=== PATIENT | female | born 1945 | race African-American/Black ===

== ENCOUNTER 2019-06-19 02:28 | Emergency (ER) | payer MEDICARE, MEDICAID ==
[~2019-06-19 02:28] MED LIST: ALPR0.25 PO; AMLO5TAB4 PO; ASPI-1393 PO; BISA-81 PO; CLON0.3T PO; LOSA100T32 PO; POTA10CA42 PO
== END 2019-06-19 05:05 | disposition left against medical advice (07) ==
LOC: ER 02:28
DX: Z53.21 Procedure and treatment not carried out due to patient leaving prior to being seen by health care provider (principal)

== ENCOUNTER 2019-07-12 18:10 | Emergency (ER) | payer MEDICARE, MEDICAID ==
[~2019-07-12] VITALS: Ht 165.1 cm; Wt 75.0 kg
[~2019-07-12 18:10] MED LIST changes: -ASPI-1393 PO; +ASPI-1497 PO
[2019-07-12] MEDS ORDERED: KETOROLAC 30MG/ML VIAL IV STA (20:19)
[2019-07-12] MEDS ORDERED: ONDANSETRON HCL 4MG/2ML INJ IV STA (20:19)
[2019-07-12] MEDS ORDERED: SODIUM CHLORIDE 0.9% 500 ML IV ONE (20:30)
[2019-07-12 21:50] LABS: BASOPHILS % 0.6 % (0.0-2.0); EOSINOPHILS % 2.3 % (0.0-5.0); HEMATOCRIT. 34.5 % (36.0-48.0); HEMOGLOBIN. 11.4 g/dL (12.0-16.0); LYMPHOCYTES % 24.9 % (20.0-50.0); MEAN CORPUSCULAR HEMOGLOBIN 28.8 pg (28.0-32.0); MEAN CORPUSCULAR VOLUME 87.1 fL (81.0-99.0); NEUTROPHILS % 64.2 % (40.0-76.0); PLATELET 170 x1000/uL (130-400); RED BLOOD CELL COUNT 3.96 mill/uL (4.2-5.4); RED CELL DISTRIBUTION WIDTH 13.9 % (11.6-14.6)
[2019-07-12 21:55] LABS: CHLORIDE 107 mEq/L (98-107)
[2019-07-12] MEDS ORDERED: CLONIDINE 0.2MG TABLET PO ONE (22:30)
[2019-07-12 22:40] LABS: CLARITY URINE CLOUDY (CLEAR); COLOR URINE YELLOW (YELLOW); KETONES URINE NEGATIVE (NEGATIVE); LEUKOCYTE ESTERASE URINE 3+ (NEGATIVE); NITRITE URINE NEGATIVE (NEGATIVE); OCCULT BLOOD URINE NEGATIVE (NEGATIVE); PH URINE 5.5 (4.5-8.0); PROTEIN URINE NEGATIVE (NEGATIVE); SPECIFIC GRAVITY URINE 1.009 (1.005-1.030); UROBILINOGEN URINE 0.2 E.U./dL (0.2-1.0)
[2019-07-12 23:30] VITALS: BP 164/74
== END 2019-07-12 23:34 | disposition home or self-care (01) ==
LOC: ER 18:10 → CANBEDREQ 07-13 00:32
DX: R07.89 Other chest pain (principal); R55 Syncope and collapse; N39.0 Urinary tract infection, site not specified; R05 Cough; R09.81 Nasal congestion; I10 Essential (primary) hypertension; Z86.73 Personal history of transient ischemic attack (TIA), and cerebral infarction without residual deficits
CPT/HCPCS: 36415; 71045; 80053; 81003; 83880; 84484; 85025; 87086; 87804; 93005; 96361; 96374; 99284; J1885; J7040; J2405

== ENCOUNTER 2019-07-13 12:31 | Inpatient (IN) | payer MEDICARE, MEDICAID ==
[2019-07-13] VITALS (38 sets, daily range): BP systolic 97–213; BP diastolic 54–119
[~2019-07-13] VITALS: Ht 152.4 cm; Wt 74.4 kg
[2019-07-13] MEDS ORDERED: CLONIDINE 0.1MG TABLET PO PRN (13:00)
[2019-07-13] MEDS: AMLODIPINE 10MG TABLET PO SCH (13:00)
[2019-07-13] MEDS ORDERED: ONDANSETRON HCL 4MG/2ML INJ IV PRN (13:00)
[2019-07-13] MEDS ORDERED: HYDRALAZINE 20MG/ML VIAL IV ONE (13:15)
[2019-07-13] MEDS ORDERED: LEVETIRACETAM 1000MG/100ML 100 ML IV ONE (13:15)
[2019-07-13 13:27] LABS: BASOPHILS % 0.5 % (0.0-2.0); CHLORIDE 107 mEq/L (98-107); EOSINOPHILS % 2.1 % (0.0-5.0); HEMATOCRIT. 38.4 % (36.0-48.0); HEMOGLOBIN. 12.8 g/dL (12.0-16.0); LYMPHOCYTES % 32.8 % (20.0-50.0); MEAN CORPUSCULAR HEMOGLOBIN 28.9 pg (28.0-32.0); MEAN CORPUSCULAR VOLUME 86.5 fL (81.0-99.0); MONOCYTES % 8.2 % (2.0-8.0); NEUTROPHILS % 56.4 % (40.0-76.0); PLATELET 187 x1000/uL (130-400); RED BLOOD CELL COUNT 4.43 mill/uL (4.2-5.4); RED CELL DISTRIBUTION WIDTH 13.6 % (11.6-14.6)
[2019-07-13 13:30] LABS: ETHANOL BLOOD < 10 mg/dL
[2019-07-13 13:33] LABS: LDL CHOLESTEROL 194 mg/dL (5-100)
[2019-07-13 13:46] LABS: PROTHROMBIN TIME 9.8 sec (9.6-11.0)
[2019-07-13] MEDS ORDERED: CLONIDINE 0.3MG TABLET PO SCH (14:00)
[2019-07-13] MEDS ORDERED: NITROGLYCERIN 50MG PREMIX 250 ML IV ONE ×2 (14:30→15:30)
[2019-07-13] MEDS ORDERED: LOSARTAN POTASSIUM 50 MG TABLET PO SCH (16:00)
[2019-07-13] MEDS ORDERED: IOHEXOL-350 100 ML BOTTLE ONE (16:56)
[2019-07-13 17:06] LABS: CLARITY URINE CLEAR (CLEAR); COLOR URINE YELLOW (YELLOW); KETONES URINE NEGATIVE (NEGATIVE); LEUKOCYTE ESTERASE URINE 1+ (NEGATIVE); NITRITE URINE NEGATIVE (NEGATIVE); OCCULT BLOOD URINE NEGATIVE (NEGATIVE); PROTEIN URINE NEGATIVE (NEGATIVE); SPECIFIC GRAVITY URINE 1.012 (1.005-1.030); UROBILINOGEN URINE 0.2 E.U./dL (0.2-1.0)
[2019-07-13 17:31] LABS: *AMPHETAMINES SCREEN URINE NEGATIVE (NEGATIVE); *BARBITURATES SCREEN URINE NEGATIVE (NEGATIVE); *BENZODIAZEPINES SCREEN URINE NEGATIVE (NEGATIVE); *COCAINE SCREEN URINE NEGATIVE (NEGATIVE); CANNABINOID URINE SCREEN NEGATIVE (NEGATIVE); METHADONE URINE SCREEN NEGATIVE (NEGATIVE); OPIATES URINE SCREEN NEGATIVE (NEGATIVE); PHENCYCLIDINE URINE SCREEN NEGATIVE (NEGATIVE)
[2019-07-13] MEDS ORDERED: NITROGLYCERIN 50MG PREMIX 250 ML IV PRN (20:45)
[2019-07-13] MEDS: ATORVASTATIN CALCIUM 10MG TABLET PO SCH (21:14)
[2019-07-13] MEDS: CLONIDINE 0.2MG TABLET PO SCH (21:15)
[2019-07-13] MEDS: ALPRAZOLAM 0.25 MG TABLET PO PRN (22:16)
[2019-07-14] VITALS (62 sets, daily range): BP systolic 86–162; BP diastolic 46–92
[2019-07-14] MEDS: CLONIDINE 0.2MG TABLET PO SCH ×3 (05:47→21:29)
[2019-07-14 06:29] LABS: BASOPHILS % 0.6 % (0.0-2.0); EOSINOPHILS % 2.5 % (0.0-5.0); HEMATOCRIT. 32.2 % (36.0-48.0); HEMOGLOBIN. 10.5 g/dL (12.0-16.0); LYMPHOCYTES % 30.7 % (20.0-50.0); MEAN CORPUSCULAR HEMOGLOBIN 28.4 pg (28.0-32.0); MEAN PLATELET VOLUME 8.3 fl (7.4-10.4); MONOCYTES % 9.9 % (2.0-8.0); NEUTROPHILS % 56.3 % (40.0-76.0); PLATELET 160 x1000/uL (130-400); RED CELL DISTRIBUTION WIDTH 13.6 % (11.6-14.6)
[2019-07-14] MEDS ORDERED: HYDRALAZINE 20MG/ML VIAL IV PRN (06:45)
[2019-07-14 07:24] LABS: CHLORIDE 108 mEq/L (98-107)
[2019-07-14 07:49] LABS: LDL CHOLESTEROL 149 mg/dL (5-100)
[2019-07-14 07:53] LABS: HDL CHOLESTEROL 46 mg/dL (40-59)
[2019-07-14] MEDS: LOSARTAN POTASSIUM 100 MG TABLET PO SCH (08:53)
[2019-07-14] MEDS: AMLODIPINE 10MG TABLET PO SCH (08:54)
[2019-07-14] MEDS: DOCUSATE SODIUM 100MG CAPSULE PO PRN (08:54)
[2019-07-14] MEDS: ACETAMINOPHEN 325MG TABLET PO PRN ×2 (08:54→17:50)
[2019-07-14] MEDS: ALPRAZOLAM 0.25 MG TABLET PO PRN ×2 (09:50→21:29)
[2019-07-14] MEDS ORDERED: DEXTROSE 50% WATER 50ML SYRINGE IV PRN (20:00)
[2019-07-14] MEDS: INSULIN LISPRO 100 UNITS/ML SUBCUT SCH (21:00)
[2019-07-14] MEDS: BLOOD SUGAR DIAGNOSTIC STRIP TEST SCH (21:28)
[2019-07-14] MEDS: ATORVASTATIN CALCIUM 10MG TABLET PO SCH (21:29)
[2019-07-15] VITALS (24 sets, daily range): BP systolic 111–164; BP diastolic 45–86
[2019-07-15 05:46] LABS: BASOPHILS % 0.6 % (0.0-2.0); EOSINOPHILS % 2.9 % (0.0-5.0); HEMATOCRIT. 34.8 % (36.0-48.0); HEMOGLOBIN. 11.5 g/dL (12.0-16.0); LYMPHOCYTES % 32.5 % (20.0-50.0); MEAN CORPUSCULAR HEMOGLOBIN 28.8 pg (28.0-32.0); MEAN CORPUSCULAR VOLUME 86.8 fL (81.0-99.0); MEAN PLATELET VOLUME 8.1 fl (7.4-10.4); MONOCYTES % 9.5 % (2.0-8.0); NEUTROPHILS % 54.5 % (40.0-76.0); PLATELET 174 x1000/uL (130-400); RED BLOOD CELL COUNT 4.01 mill/uL (4.2-5.4); RED CELL DISTRIBUTION WIDTH 13.4 % (11.6-14.6)
[2019-07-15] MEDS: CLONIDINE 0.2MG TABLET PO SCH ×3 (06:23→21:47)
[2019-07-15] MEDS: BLOOD SUGAR DIAGNOSTIC STRIP TEST SCH ×5 (06:47→21:00)
[2019-07-15] MEDS: INSULIN LISPRO 100 UNITS/ML SUBCUT SCH ×5 (06:47→21:00)
[2019-07-15] MEDS ORDERED: TRAMADOL 50MG TABLET PO PRN (08:00)
[2019-07-15] MEDS: LOSARTAN POTASSIUM 100 MG TABLET PO SCH (08:54)
[2019-07-15] MEDS: AMLODIPINE 10MG TABLET PO SCH (08:54)
[2019-07-15] MEDS: DOCUSATE SODIUM 100MG CAPSULE PO PRN (08:54)
[2019-07-15] MEDS: ALPRAZOLAM 0.25 MG TABLET PO PRN (17:18)
[2019-07-15] MEDS: LACTULOSE 20G/30ML UDC PO SCH ×2 (17:30→21:46)
[2019-07-15] MEDS: ATORVASTATIN CALCIUM 10MG TABLET PO SCH (21:00)
[2019-07-15] MEDS: LEVETIRACETAM 500MG TABLET PO SCH (21:00)
[2019-07-16] VITALS (10 sets, daily range): BP systolic 97–161; BP diastolic 35–77
[2019-07-16] MEDS: CLONIDINE 0.2MG TABLET PO SCH ×2 (05:17→13:20)
[2019-07-16] MEDS: BLOOD SUGAR DIAGNOSTIC STRIP TEST SCH ×2 (07:30→13:20)
[2019-07-16] MEDS: INSULIN LISPRO 100 UNITS/ML SUBCUT SCH ×2 (08:00→13:00)
[2019-07-16] MEDS: LACTULOSE 20G/30ML UDC PO SCH (08:34)
[2019-07-16] MEDS: AMLODIPINE 10MG TABLET PO SCH (08:44)
[2019-07-16] MEDS: LEVETIRACETAM 500MG TABLET PO SCH (08:45)
[2019-07-16] MEDS: LOSARTAN POTASSIUM 100 MG TABLET PO SCH (08:45)
[2019-07-16] MEDS ORDERED: LACTULOSE 20G/30ML UDC PO PRN (14:15)
== END 2019-07-16 16:01 | disposition home or self-care (01) | DRG 92 ==
LOC: ER 12:31 → MICUNO 13:04 → EDBEDREQ 14:01 → EDBEDREQSVC 14:01 → EDBEDREQTM 14:01 → ENRESERV 19:23 → 5EST 07-15 12:20
PROVIDERS: ADMIT Internal Medicine Nephrology; ATTEND Internal Medicine Nephrology
DX: G92 Toxic encephalopathy (principal); R47.01 Aphasia; I16.9 Hypertensive crisis, unspecified; D64.9 Anemia, unspecified; I49.5 Sick sinus syndrome; I10 Essential (primary) hypertension; E11.9 Type 2 diabetes mellitus without complications; R13.10 Dysphagia, unspecified; D72.819 Decreased white blood cell count, unspecified; E78.00 Pure hypercholesterolemia, unspecified; E78.5 Hyperlipidemia, unspecified; F17.210 Nicotine dependence, cigarettes, uncomplicated; F32.9 Major depressive disorder, single episode, unspecified; R47.1 Dysarthria and anarthria; F41.9 Anxiety disorder, unspecified; I25.10 Atherosclerotic heart disease of native coronary artery without angina pectoris; R26.9 Unspecified abnormalities of gait and mobility; J44.9 Chronic obstructive pulmonary disease, unspecified; Z79.899 Other long term (current) drug therapy; Z82.3 Family history of stroke; Z82.49 Family history of ischemic heart disease and other diseases of the circulatory system; Z83.3 Family history of diabetes mellitus; Z86.73 Personal history of transient ischemic attack (TIA), and cerebral infarction without residual deficits; Z95.0 Presence of cardiac pacemaker
CPT/HCPCS: 36415; 70496; 71045; 80048; 80053; 80061; 80305; 80320; 81003; 82962; 83721; 83735; 84484; 85025; 92610; 93005; 93306; 96365; 96375; 97116; 97162; 97166; 97530; 97535; 99291; J0360; J1953; J3490; Q9967; G0480

== ENCOUNTER 2021-06-08 01:09 | Inpatient (IN) | payer MEDICARE, MEDICAID ==
[~2021-06-08] VITALS: Ht 165.1 cm; Wt 66.7 kg
[~2021-06-08 01:09] MED LIST changes: -ALPR0.25 PO; +AMLO10TA80 PO; -AMLO5TAB4 PO; -ASPI-1497 PO; -BISA-81 PO; +CHOL200077 MT; +CLON0.2T PO; -CLON0.3T PO; +HYDR-4134 PO; -POTA10CA42 PO
[2021-06-08] MEDS ORDERED: NITROGLYCERIN 0.4MG TABLET SL SL PRN (02:15)
[2021-06-08] MEDS ORDERED: LABETALOL HCL VIAL 20 MG/4 ML VIAL IV ONE (02:15)
[2021-06-08] MEDS ORDERED: ASPIRIN 81MG TABLET PO ONE (02:15)
[2021-06-08 04:06] LABS: CHLORIDE 98 mEq/L (98-107)
[2021-06-08 04:08] LABS: BASOPHILS % 0.9 % (0.0-2.0); EOSINOPHILS % 1.9 % (0.0-5.0); HEMATOCRIT. 36.4 % (36.0-48.0); HEMOGLOBIN. 12.2 g/dL (12.0-16.0); LYMPHOCYTES % 28.2 % (20.0-50.0); MEAN CORPUSCULAR VOLUME 89.6 fL (81.0-99.0); MEAN PLATELET VOLUME 7.6 fl (7.4-10.4); MONOCYTES % 9.9 % (2.0-8.0); NEUTROPHILS % 59.1 % (40.0-76.0); PLATELET 191 x1000/uL (130-400); RED BLOOD CELL COUNT 4.06 mill/uL (4.2-5.4); RED CELL DISTRIBUTION WIDTH 13.6 % (11.6-14.6)
[2021-06-08] MEDS ORDERED: CLONIDINE 0.1MG TABLET PO PRN (06:30)
[2021-06-08] MEDS ORDERED: GUAIFENESIN 200MG/10ML SUGAR FREE UDC PO PRN (06:30)
[2021-06-08] MEDS ORDERED: NA PHOS,M-B/NA PHOS,DI-BA ENEMA 118ML PR PRN (06:30)
[2021-06-08] MEDS ORDERED: DIPHENHYDRAMINE 50MG/ML VIAL IV PRN (06:30)
[2021-06-08 06:42] LABS: PHOSPHORUS 3.2 mg/dL (2.5-4.9)
[2021-06-08] MEDS: HYDRALAZINE HCL 50MG TABLET PO SCH ×3 (07:10→21:39)
[2021-06-08] MEDS ORDERED: LOSARTAN POTASSIUM 25 MG TABLET PO SCH (09:00)
[2021-06-08] MEDS ORDERED: DOCUSATE SODIUM 100MG CAPSULE PO PRN (09:00)
[2021-06-08] MEDS ORDERED: AMLO5TAB88 MT (09:44)
[2021-06-08] MEDS ORDERED: LOSA50TA41 MT (09:44)
[2021-06-08] MEDS ORDERED: CLON-457 MT (09:44)
[2021-06-08] MEDS ORDERED: CHOL400D7 PO (09:44)
[2021-06-08] MEDS ORDERED: TOPUD MT (09:44)
[2021-06-08 10:16] VITALS: BP 112/55
[2021-06-08 10:41] VITALS: BP 112/55
[2021-06-08] MEDS ORDERED: PNEUMOCOCCAL 23-VAL P-SAC VAC 0.5 ML IM ONE (10:45)
[2021-06-08] MEDS: ENOXAPARIN 40MG/0.4ML SYR SUBCUT SCH (11:22)
[2021-06-08] MEDS: AMLODIPINE 5MG TABLET PO SCH (11:22)
[2021-06-08] MEDS: LOSARTAN POTASSIUM 50 MG TABLET PO SCH (11:22)
[2021-06-08] MEDS: ACETAMINOPHEN 325MG TABLET PO PRN (11:25)
[2021-06-08] MEDS ORDERED: POTA20TA82 MT (11:32)
[2021-06-08 12:00] VITALS: BP 109/67
[2021-06-08] MEDS: TRAMADOL 50MG TABLET PO PRN ×2 (15:24→23:26)
[2021-06-08] MEDS ORDERED: NALOXONE HCL 0.4MG/ML VIAL IV PRN (15:30)
[2021-06-08 16:00] VITALS: BP 148/64
[2021-06-08 20:00] VITALS: BP 117/69
[2021-06-08] MEDS ORDERED: DOXAZOSIN MESYLATE 2MG TABLET PO SCH (21:00)
[2021-06-08] MEDS: ALPRAZOLAM 0.25 MG TABLET PO PRN (22:56)
[2021-06-09] VITALS (7 sets, daily range): BP systolic 121–188; BP diastolic 50–87
[2021-06-09] MEDS: HYDRALAZINE HCL 50MG TABLET PO SCH ×3 (05:55→21:33)
[2021-06-09] MEDS: TRAMADOL 50MG TABLET PO PRN ×2 (05:56→23:50)
[2021-06-09 07:04] LABS: BASOPHILS % 0.5 % (0.0-2.0); EOSINOPHILS % 1.1 % (0.0-5.0); HEMOGLOBIN. 11.4 g/dL (12.0-16.0); LYMPHOCYTES % 18.9 % (20.0-50.0); MEAN CORPUSCULAR HEMOGLOBIN 30.2 pg (28.0-32.0); MEAN PLATELET VOLUME 7.6 fl (7.4-10.4); MONOCYTES % 9.5 % (2.0-8.0); PLATELET 187 x1000/uL (130-400); RED BLOOD CELL COUNT 3.78 mill/uL (4.2-5.4); RED CELL DISTRIBUTION WIDTH 13.7 % (11.6-14.6)
[2021-06-09 07:30] LABS: CHLORIDE 103 mEq/L (98-107)
[2021-06-09 07:38] LABS: CREATINE KINASE 54 IU/L (26-192)
[2021-06-09 07:40] LABS: PHOSPHORUS 3.5 mg/dL (2.5-4.9)
[2021-06-09 07:52] LABS: CREATINE KINASE MB FRACTION 1.4 ng/mL (0.5-3.6)
[2021-06-09] MEDS: AMLODIPINE 5MG TABLET PO SCH (09:23)
[2021-06-09] MEDS: LOSARTAN POTASSIUM 50 MG TABLET PO SCH (09:23)
[2021-06-09] MEDS: ENOXAPARIN 40MG/0.4ML SYR SUBCUT SCH (09:24)
[2021-06-09] MEDS: ACETAMINOPHEN 325MG TABLET PO PRN (09:26)
[2021-06-09] MEDS ORDERED: BISACODYL 5MG TABLET PO NR (12:00)
[2021-06-09] MEDS ORDERED: ACETAMINOPHEN 325MG TABLET PO PRN (12:30)
[2021-06-09] MEDS: POLYETHYLENE GLYCOL 3350 (17GM) 1 DOSE PACK PO SCH (13:07)
[2021-06-09] MEDS: DOCUSATE SODIUM 100MG CAPSULE PO SCH ×2 (13:08→16:17)
[2021-06-09] MEDS: ALPRAZOLAM 0.25 MG TABLET PO PRN (21:32)
[2021-06-10] VITALS: BP 139/55
[2021-06-10] MEDS: HYDRALAZINE HCL 50MG TABLET PO SCH (06:03)
[2021-06-10 06:42] LABS: PROTHROMBIN TIME 10.6 sec (9.6-11.0)
[2021-06-10 06:55] LABS: BASOPHILS % 0.6 % (0.0-2.0); EOSINOPHILS % 0.8 % (0.0-5.0); HEMATOCRIT. 34.6 % (36.0-48.0); HEMOGLOBIN. 11.5 g/dL (12.0-16.0); LYMPHOCYTES % 20.5 % (20.0-50.0); MEAN CORPUSCULAR HEMOGLOBIN 30.1 pg (28.0-32.0); MEAN CORPUSCULAR VOLUME 90.4 fL (81.0-99.0); MEAN PLATELET VOLUME 7.8 fl (7.4-10.4); MONOCYTES % 10.3 % (2.0-8.0); NEUTROPHILS % 67.8 % (40.0-76.0); PLATELET 188 x1000/uL (130-400); RED BLOOD CELL COUNT 3.83 mill/uL (4.2-5.4); RED CELL DISTRIBUTION WIDTH 13.8 % (11.6-14.6)
[2021-06-10 08:00] VITALS: BP 137/62
[2021-06-10] MEDS: ENOXAPARIN 40MG/0.4ML SYR SUBCUT SCH (09:23)
[2021-06-10] MEDS: POLYETHYLENE GLYCOL 3350 (17GM) 1 DOSE PACK PO SCH (09:24)
[2021-06-10] MEDS: AMLODIPINE 5MG TABLET PO SCH (09:24)
[2021-06-10] MEDS: DOCUSATE SODIUM 100MG CAPSULE PO SCH ×2 (09:24→17:28)
[2021-06-10] MEDS: LOSARTAN POTASSIUM 50 MG TABLET PO SCH (09:25)
[2021-06-10] MEDS: ONDANSETRON HCL 4MG/2ML INJ IV PRN ×2 (09:25→21:42)
[2021-06-10 12:00] VITALS: BP 135/55
[2021-06-10] MEDS: HYDRALAZINE HCL 25MG TABLET PO SCH ×2 (14:45→21:53)
[2021-06-10] MEDS: TRAMADOL 50MG TABLET PO PRN (14:48)
[2021-06-10 16:00] VITALS: BP 123/56
[2021-06-10 20:00] VITALS: BP 165/70
[2021-06-10] MEDS: ALPRAZOLAM 0.25 MG TABLET PO PRN (22:10)
[2021-06-11] VITALS: BP 125/57
[2021-06-11 04:00] VITALS: BP 127/50
[2021-06-11] MEDS: HYDRALAZINE HCL 25MG TABLET PO SCH (06:22)
[2021-06-11 07:16] LABS: BASOPHILS % 0.7 % (0.0-2.0); EOSINOPHILS % 0.9 % (0.0-5.0); HEMATOCRIT. 35.5 % (36.0-48.0); HEMOGLOBIN. 11.9 g/dL (12.0-16.0); LYMPHOCYTES % 24.5 % (20.0-50.0); MEAN CORPUSCULAR HEMOGLOBIN 30.3 pg (28.0-32.0); MEAN CORPUSCULAR VOLUME 90.1 fL (81.0-99.0); MEAN PLATELET VOLUME 7.4 fl (7.4-10.4); MONOCYTES % 13.4 % (2.0-8.0); NEUTROPHILS % 60.5 % (40.0-76.0); PLATELET 201 x1000/uL (130-400); RED BLOOD CELL COUNT 3.95 mill/uL (4.2-5.4); RED CELL DISTRIBUTION WIDTH 13.6 % (11.6-14.6)
[2021-06-11 08:00] VITALS: BP 144/60
[2021-06-11] MEDS: POLYETHYLENE GLYCOL 3350 (17GM) 1 DOSE PACK PO SCH (08:43)
[2021-06-11] MEDS: DOCUSATE SODIUM 100MG CAPSULE PO SCH (08:43)
[2021-06-11] MEDS: LOSARTAN POTASSIUM 50 MG TABLET PO SCH (08:43)
[2021-06-11] MEDS: AMLODIPINE 5MG TABLET PO SCH (08:44)
[2021-06-11] MEDS: ENOXAPARIN 40MG/0.4ML SYR SUBCUT SCH (08:45)
[2021-06-11] MEDS: TRAMADOL 50MG TABLET PO PRN (08:54)
[2021-06-11] MEDS ORDERED: NA PHOS,M-B/NA PHOS,DI-BA ENEMA 118ML PR NR (09:30)
[2021-06-11] MEDS ORDERED: LACTULOSE 20G/30ML UDC PO NR (09:30)
[2021-06-11 10:13] VITALS: BP 144/60
[2021-06-11 12:00] VITALS: BP 145/71
== END 2021-06-11 14:29 | disposition home or self-care (01) | DRG 305 ==
LOC: ER 01:09 → 7EST 02:36
PROVIDERS: ADMIT Internal Medicine Nephrology; ATTEND Internal Medicine Nephrology
DX: I16.1 Hypertensive emergency (principal); E87.1 Hypo-osmolality and hyponatremia; D72.819 Decreased white blood cell count, unspecified; E11.22 Type 2 diabetes mellitus with diabetic chronic kidney disease; E78.5 Hyperlipidemia, unspecified; E83.52 Hypercalcemia; F41.9 Anxiety disorder, unspecified; G40.909 Epilepsy, unspecified, not intractable, without status epilepticus; I25.10 Atherosclerotic heart disease of native coronary artery without angina pectoris; R07.89 Other chest pain; M25.512 Pain in left shoulder; J44.9 Chronic obstructive pulmonary disease, unspecified; F32.A Depression, unspecified; M19.90 Unspecified osteoarthritis, unspecified site; I13.10 Hypertensive heart and chronic kidney disease without heart failure, with stage 1 through stage 4 chronic kidney disease, or unspecified chronic kidney disease; R50.9 Fever, unspecified; I49.5 Sick sinus syndrome; Z20.822 Contact with and (suspected) exposure to COVID-19; K59.00 Constipation, unspecified; N18.9 Chronic kidney disease, unspecified; Z79.899 Other long term (current) drug therapy; Z87.891 Personal history of nicotine dependence; I69.320 Aphasia following cerebral infarction; I69.322 Dysarthria following cerebral infarction; Z95.0 Presence of cardiac pacemaker
CPT/HCPCS: 36415; 71045; 73030; 80048; 80053; 82247; 82330; 82550; 82553; 83735; 83880; 83930; 83970; 84100; 84484; 85025; 87426; 90732; 93005; 93306; 93970; 99291; J1650; J2405; J3490

== ENCOUNTER 2022-06-10 06:17 | Inpatient (IN) | payer MEDICARE, MEDICAID ==
[~2022-06-10] VITALS: Ht 165.1 cm; Wt 64.9 kg
[~2022-06-10 06:17] MED LIST changes: +AMLO5TAB88 MT; +CHOL400D7 PO; +CLON-457 MT; +LOSA50TA41 MT; +POTA-205 MT; +TOPUD MT
[2022-06-10] MEDS ORDERED: LIDOCAINE HCL 1% 20ML VIAL (Pyxis) INJ ONE (07:37)
[2022-06-10 08:33] LABS: BASOPHILS % 1.3 % (0.0-2.0); EOSINOPHILS % 3.2 % (0.0-5.0); HEMATOCRIT. 37.7 % (36.0-48.0); HEMOGLOBIN. 12.5 g/dL (12.0-16.0); LYMPHOCYTES % 29.8 % (20.0-50.0); MEAN CORPUSCULAR HEMOGLOBIN 29.4 pg (28.0-32.0); MEAN CORPUSCULAR VOLUME 88.2 fL (81.0-99.0); MEAN PLATELET VOLUME 7.4 fl (7.4-10.4); MONOCYTES % 8.2 % (2.0-8.0); NEUTROPHILS % 57.5 % (40.0-76.0); PLATELET 211 x1000/uL (130-400); RED BLOOD CELL COUNT 4.27 mill/uL (4.2-5.4); RED CELL DISTRIBUTION WIDTH 14.6 % (11.6-14.6)
[2022-06-10] MEDS ORDERED: ALPR-392 PO (08:38)
[2022-06-10] MEDS ORDERED: ALBU90AE IH (08:38)
[2022-06-10] MEDS ORDERED: CLOP75TA33 PO (08:38)
[2022-06-10] MEDS ORDERED: ASPI-1497 PO (08:40)
[2022-06-10] MEDS ORDERED: IODIXANOL 320MG/ML 100 ML BOTTLE IV ONE (09:24)
[2022-06-10] MEDS ORDERED: LABETALOL 5MG/ML SYR 20 MG/4 ML SYRINGE IV PRN (09:30)
[2022-06-10] MEDS ORDERED: MEPERIDINE HCL/PF 25MG/ML CPJ IV PRN (09:30)
[2022-06-10] MEDS ORDERED: HYDROMORPHONE HCL/PF 2MG/ML CPJ IV PRN (09:30)
[2022-06-10] MEDS ORDERED: ONDANSETRON HCL 4MG/2ML INJ IV PRN (09:30)
[2022-06-10] MEDS ORDERED: LIDOCAINE HCL 1% 10 MG/ML 10ML VIAL ONE (09:31)
[2022-06-10] MEDS ORDERED: PROPOFOL 200MG/20ML VIAL IV ONE (09:31)
[2022-06-10] MEDS ORDERED: MIDAZOLAM HCL 2 MG/2 ML VIAL ONE ×2 (09:32)
[2022-06-10] MEDS ORDERED: FENTANYL CITRATE/PF 50MCG/ML 2ML VIAL ONE ×2 (09:32→11:09)
[2022-06-10 09:57] LABS: CHLORIDE 101 mEq/L (98-107)
[2022-06-10 10:01] LABS: PROTHROMBIN TIME 10.6 sec (9.6-11.0)
[2022-06-10] MEDS ORDERED: GENTAMICIN SULF 40MG/ML 2ML VIAL ONE (11:34)
[2022-06-10] MEDS: FENTANYL CITRATE/PF 50MCG/ML 2ML VIAL IV PRN ×2 (12:41→13:24)
[2022-06-10] MEDS ORDERED: NALOXONE HCL 0.4MG/ML VIAL IV PRN (13:30)
[2022-06-10] MEDS: POTASSIUM CHLORIDE 20MEQ TABLET SR PO SCH (13:30)
[2022-06-10] MEDS: CLONIDINE 0.2MG TABLET PO SCH ×2 (14:13→17:44)
[2022-06-10 16:01] VITALS: BP 129/69
[2022-06-10 16:05] VITALS: BP 129/69
[2022-06-10] MEDS: HYDRALAZINE HCL 25MG TABLET PO SCH (17:44)
[2022-06-10] MEDS: HYDROCODONE/ACETAMINOPHEN 5/325MG TABLET PO PRN (17:44)
[2022-06-10 18:00] VITALS: BP 115/56
[2022-06-10] MEDS ORDERED: ALPRAZOLAM 0.25 MG TABLET PO PRN (19:45)
[2022-06-10 20:00] VITALS: BP 155/70
[2022-06-11] VITALS: BP 117/61
[2022-06-11 04:00] VITALS: BP 112/63
[2022-06-11] MEDS: HYDROCODONE/ACETAMINOPHEN 5/325MG TABLET PO PRN (05:10)
[2022-06-11 06:57] LABS: BASOPHILS % 0.9 % (0.0-2.0); EOSINOPHILS % 2.1 % (0.0-5.0); HEMATOCRIT. 33.2 % (36.0-48.0); HEMOGLOBIN. 11.4 g/dL (12.0-16.0); LYMPHOCYTES % 21.4 % (20.0-50.0); MEAN CORPUSCULAR HEMOGLOBIN 30.1 pg (28.0-32.0); MEAN CORPUSCULAR VOLUME 88.1 fL (81.0-99.0); MEAN PLATELET VOLUME 7.6 fl (7.4-10.4); MONOCYTES % 9.8 % (2.0-8.0); NEUTROPHILS % 65.8 % (40.0-76.0); PLATELET 194 x1000/uL (130-400); RED BLOOD CELL COUNT 3.77 mill/uL (4.2-5.4)
[2022-06-11 08:00] VITALS: BP 129/64
[2022-06-11] MEDS: POTASSIUM CHLORIDE 20MEQ TABLET SR PO SCH (08:27)
[2022-06-11 08:28] LABS: CHLORIDE 102 mEq/L (98-107)
[2022-06-11] MEDS: HYDRALAZINE HCL 25MG TABLET PO SCH (09:00)
[2022-06-11] MEDS ORDERED: AMLODIPINE 10MG TABLET PO SCH (09:00)
[2022-06-11] MEDS ORDERED: ASPIRIN 81MG EC TABLET PO SCH (09:00)
[2022-06-11] MEDS ORDERED: CLOPIDOGREL 75MG TABLET PO SCH (09:00)
[2022-06-11] MEDS ORDERED: LOSARTAN POTASSIUM 50 MG TABLET PO SCH (09:00)
[2022-06-11 10:00] VITALS: BP 117/61
[2022-06-11] MEDS: CLONIDINE 0.2MG TABLET PO SCH ×2 (11:22→13:00)
[2022-06-11 12:00] VITALS: BP 129/61
[2022-06-11 15:00] VITALS: BP 101/60
== END 2022-06-11 15:50 | disposition home or self-care (01) | DRG 244 ==
LOC: CCL 06:17 → CVICU 15:20 → 3WST 15:43
PROVIDERS: ADMIT Internal Medicine Clinical Cardiac Electrophysiology; ATTEND Internal Medicine Clinical Cardiac Electrophysiology
PROC: 02H63JZ Insertion of Pacemaker Lead into Right Atrium, Percutaneous Approach (ICD-10-PCS; principal; 2022-06-10)
PROC: 0JH606Z Insertion of Pacemaker, Dual Chamber into Chest Subcutaneous Tissue and Fascia, Open Approach (ICD-10-PCS; 2022-06-10)
PROC: 0JPT0PZ Removal of Cardiac Rhythm Related Device from Trunk Subcutaneous Tissue and Fascia, Open Approach (ICD-10-PCS; 2022-06-10)
PROC: 02PA3MZ Removal of Cardiac Lead from Heart, Percutaneous Approach (ICD-10-PCS; 2022-06-10)
PROC: B5171ZZ Fluoroscopy of Left Subclavian Vein using Low Osmolar Contrast (ICD-10-PCS; 2022-06-10)
DX: T82.110A Breakdown (mechanical) of cardiac electrode, initial encounter (principal); I49.5 Sick sinus syndrome; E11.9 Type 2 diabetes mellitus without complications; E78.5 Hyperlipidemia, unspecified; E87.6 Hypokalemia; J44.9 Chronic obstructive pulmonary disease, unspecified; I10 Essential (primary) hypertension; I25.10 Atherosclerotic heart disease of native coronary artery without angina pectoris; Z86.73 Personal history of transient ischemic attack (TIA), and cerebral infarction without residual deficits; Z95.0 Presence of cardiac pacemaker; Z95.5 Presence of coronary angioplasty implant and graft; Z79.84 Long term (current) use of oral hypoglycemic drugs; Z87.891 Personal history of nicotine dependence; Z88.6 Allergy status to analgesic agent; Z88.8 Allergy status to other drugs, medicaments and biological substances; Y83.8 Other surgical procedures as the cause of abnormal reaction of the patient, or of later complication, without mention of misadventure at the time of the procedure; Y92.89 Other specified places as the place of occurrence of the external cause
CPT/HCPCS: 33206; 33233; 36415; 71045; 75820; 80048; 85025; 93005; A4565; C1785; C1893; C1898; J1580; J2250; J2704; J3010; J3490; Q9967

== ENCOUNTER 2022-08-31 05:24 | Inpatient (IN) | payer MEDICARE, MEDICAID ==
[~2022-08-31] VITALS: Ht 175.3 cm; Wt 82.6 kg
[~2022-08-31 05:24] MED LIST changes: +ALBU90AE IH; +ALPR-392 PO; +ASPI-1497 PO; +CLOP75TA33 PO
[2022-08-31 06:04] LABS: BASOPHILS % 0.8 % (0.0-2.0); EOSINOPHILS % 3.5 % (0.0-5.0); HEMATOCRIT. 36.8 % (36.0-48.0); HEMOGLOBIN. 12.2 g/dL (12.0-16.0); LYMPHOCYTES % 44.8 % (20.0-50.0); MEAN CORPUSCULAR HEMOGLOBIN 29.6 pg (28.0-32.0); MEAN CORPUSCULAR VOLUME 89.2 fL (81.0-99.0); MEAN PLATELET VOLUME 7.9 fl (7.4-10.4); MONOCYTES % 10.5 % (2.0-8.0); NEUTROPHILS % 40.4 % (40.0-76.0); PLATELET 192 x1000/uL (130-400); RED BLOOD CELL COUNT 4.12 mill/uL (4.2-5.4); RED CELL DISTRIBUTION WIDTH 13.6 % (11.6-14.6)
[2022-08-31 06:16] LABS: CHLORIDE 106 mEq/L (98-107)
[2022-08-31 06:29] LABS: ETHANOL BLOOD < 10 mg/dL
[2022-08-31] MEDS ORDERED: CLONIDINE 0.1MG TABLET PO ONE (07:30)
[2022-08-31] MEDS ORDERED: ALPRAZOLAM 0.25 MG TABLET PO ONE (07:30)
[2022-08-31] MEDS ORDERED: HYDROCHLOROTHIAZIDE 12.5MG CAPSULE PO ONE (07:30)
[2022-08-31 10:21] LABS: *AMPHETAMINES SCREEN URINE NEGATIVE (NEGATIVE); *BARBITURATES SCREEN URINE NEGATIVE (NEGATIVE); *BENZODIAZEPINES SCREEN URINE NEGATIVE (NEGATIVE); *COCAINE SCREEN URINE NEGATIVE (NEGATIVE); CANNABINOID URINE SCREEN NEGATIVE (NEGATIVE); METHADONE URINE SCREEN NEGATIVE (NEGATIVE); OPIATES URINE SCREEN NEGATIVE (NEGATIVE); PHENCYCLIDINE URINE SCREEN NEGATIVE (NEGATIVE)
[2022-08-31] MEDS ORDERED: ACETAMINOPHEN 325MG TABLET PO PRN (11:30)
[2022-08-31] MEDS ORDERED: ONDANSETRON HCL 4MG/2ML INJ IV PRN (11:30)
[2022-08-31] MEDS ORDERED: NALOXONE HCL 0.4MG/ML VIAL IV PRN (11:45)
[2022-08-31 14:56] VITALS: BP 130/74
[2022-08-31 14:59] VITALS: BP 130/74
[2022-08-31] MEDS: CLONIDINE 0.2MG TABLET PO SCH ×2 (16:47→22:00)
[2022-08-31] MEDS: ENOXAPARIN 40MG/0.4ML SYR SUBCUT SCH (16:48)
[2022-08-31] MEDS: HYDROCODONE/ACETAMINOPHEN 7.5/325MG TABLET PO PRN (16:48)
[2022-08-31 20:06] VITALS: BP 119/65
[2022-08-31] MEDS: HYDRALAZINE HCL 25MG TABLET PO SCH (21:00)
[2022-08-31] MEDS: ALPRAZOLAM 0.25 MG TABLET PO PRN (21:06)
[2022-09-01 04:00] VITALS: BP 126/64
[2022-09-01 05:50] LABS: BASOPHILS % 1.2 % (0.0-2.0); EOSINOPHILS % 4.2 % (0.0-5.0); HEMATOCRIT. 33.6 % (36.0-48.0); HEMOGLOBIN. 11.2 g/dL (12.0-16.0); LYMPHOCYTES % 30.3 % (20.0-50.0); MEAN CORPUSCULAR HEMOGLOBIN 29.7 pg (28.0-32.0); MEAN PLATELET VOLUME 7.9 fl (7.4-10.4); NEUTROPHILS % 52.3 % (40.0-76.0); PLATELET 173 x1000/uL (130-400); RED BLOOD CELL COUNT 3.78 mill/uL (4.2-5.4); RED CELL DISTRIBUTION WIDTH 13.8 % (11.6-14.6)
[2022-09-01] MEDS: HYDROCODONE/ACETAMINOPHEN 7.5/325MG TABLET PO PRN ×2 (05:52→18:11)
[2022-09-01] MEDS: CLONIDINE 0.2MG TABLET PO SCH ×3 (06:29→21:31)
[2022-09-01 08:14] VITALS: BP 117/58
[2022-09-01 08:30] LABS: CLARITY URINE CLEAR (CLEAR); COLOR URINE YELLOW (YELLOW); KETONES URINE NEGATIVE (NEGATIVE); LEUKOCYTE ESTERASE URINE 1+ (NEGATIVE); NITRITE URINE NEGATIVE (NEGATIVE); OCCULT BLOOD URINE NEGATIVE (NEGATIVE); PH URINE 6.5 (4.5-8.0); PROTEIN URINE NEGATIVE (NEGATIVE); SPECIFIC GRAVITY URINE 1.012 (1.005-1.030); UROBILINOGEN URINE 0.2 E.U./dL (0.2-1.0)
[2022-09-01] MEDS: CLOPIDOGREL 75MG TABLET PO SCH (09:03)
[2022-09-01] MEDS: HYDRALAZINE HCL 25MG TABLET PO SCH ×2 (09:03→21:31)
[2022-09-01] MEDS: ASPIRIN 81MG EC TABLET PO SCH (09:03)
[2022-09-01] MEDS: AMLODIPINE 10MG TABLET PO SCH (09:03)
[2022-09-01] MEDS ORDERED: CEFTRIAXONE 1 G PREMIX 50 ML IV SCH (09:15)
[2022-09-01 12:00] VITALS: BP 114/57
[2022-09-01] MEDS: ALPRAZOLAM 0.25 MG TABLET PO PRN (12:19)
[2022-09-01] MEDS: CEFTRIAXONE 1,000 MG in DEXTROSE 5% WATER 50 ML IV SCH (13:22)
[2022-09-01 16:00] VITALS: BP 136/74
[2022-09-01] MEDS: ENOXAPARIN 40MG/0.4ML SYR SUBCUT SCH (16:37)
[2022-09-01 20:00] VITALS: BP 154/81
[2022-09-01] MEDS: LEVETIRACETAM 500MG TABLET PO SCH (21:30)
[2022-09-02] VITALS: BP 109/59
[2022-09-02 04:00] VITALS: BP 153/83
[2022-09-02] MEDS: CLONIDINE 0.2MG TABLET PO SCH (05:29)
[2022-09-02] MEDS: ALPRAZOLAM 0.25 MG TABLET PO PRN ×2 (05:29→17:50)
[2022-09-02 06:48] LABS: BASOPHILS % 0.8 % (0.0-2.0); HEMOGLOBIN. 11.3 g/dL (12.0-16.0); LYMPHOCYTES % 26.3 % (20.0-50.0); MEAN CORPUSCULAR HEMOGLOBIN 29.6 pg (28.0-32.0); MEAN CORPUSCULAR VOLUME 89.3 fL (81.0-99.0); MEAN PLATELET VOLUME 7.9 fl (7.4-10.4); MONOCYTES % 11.5 % (2.0-8.0); NEUTROPHILS % 57.4 % (40.0-76.0); PLATELET 183 x1000/uL (130-400); RED BLOOD CELL COUNT 3.81 mill/uL (4.2-5.4); RED CELL DISTRIBUTION WIDTH 13.2 % (11.6-14.6)
[2022-09-02 08:00] VITALS: BP 95/52
[2022-09-02 08:59] LABS: PHOSPHORUS 3.8 mg/dL (2.5-4.9)
[2022-09-02] MEDS: AMLODIPINE 10MG TABLET PO SCH (09:00)
[2022-09-02] MEDS: CLOPIDOGREL 75MG TABLET PO SCH (09:15)
[2022-09-02] MEDS: LEVETIRACETAM 500MG TABLET PO SCH (09:15)
[2022-09-02] MEDS: ASPIRIN 81MG EC TABLET PO SCH (09:15)
[2022-09-02 12:00] VITALS: BP_SYST 110; BP_SYST 125; BP_DIAS 57; BP_DIAS 65
[2022-09-02] MEDS: CEFTRIAXONE 1,000 MG in DEXTROSE 5% WATER 50 ML IV SCH (12:54)
[2022-09-02] MEDS: HYDRALAZINE HCL 25MG TABLET PO SCH (13:07)
[2022-09-02 16:00] VITALS: BP 121/70
[2022-09-02] MEDS: ENOXAPARIN 40MG/0.4ML SYR SUBCUT SCH (16:20)
[2022-09-02] MEDS: HYDROCODONE/ACETAMINOPHEN 7.5/325MG TABLET PO PRN (16:20)
[2022-09-02] MEDS ORDERED: CLONIDINE 0.1MG TABLET PO SCH (17:00)
[2022-09-02 18:12] VITALS: BP 125/80
[2022-09-02] MEDS ORDERED: AMLODIPINE 2.5MG TABLET PO SCH (21:00)
== END 2022-09-02 19:05 | disposition home or self-care (01) | DRG 69 ==
LOC: ER 05:24 → EDBEDREQ 11:26 → 3WST 15:07
PROVIDERS: ADMIT Internal Medicine Nephrology; ATTEND Internal Medicine Nephrology
PROC: 4A00X4Z Measurement of Central Nervous Electrical Activity, External Approach (ICD-10-PCS; principal; 2022-09-02)
DX: G45.9 Transient cerebral ischemic attack, unspecified (principal); G92.8 Other toxic encephalopathy; I69.354 Hemiplegia and hemiparesis following cerebral infarction affecting left non-dominant side; E11.22 Type 2 diabetes mellitus with diabetic chronic kidney disease; F41.9 Anxiety disorder, unspecified; N18.9 Chronic kidney disease, unspecified; J44.9 Chronic obstructive pulmonary disease, unspecified; I25.10 Atherosclerotic heart disease of native coronary artery without angina pectoris; G40.909 Epilepsy, unspecified, not intractable, without status epilepticus; E78.5 Hyperlipidemia, unspecified; I49.5 Sick sinus syndrome; I12.9 Hypertensive chronic kidney disease with stage 1 through stage 4 chronic kidney disease, or unspecified chronic kidney disease; I95.9 Hypotension, unspecified; Z95.5 Presence of coronary angioplasty implant and graft; Z95.0 Presence of cardiac pacemaker
CPT/HCPCS: 36415; 71045; 80048; 80053; 80061; 80305; 80320; 81003; 83735; 83880; 84100; 84443; 84484; 85025; 93005; 93306; 93880; 93970; 97162; 99285; J0696; J1650; J7060; G0480

== ENCOUNTER 2022-11-07 19:03 | Emergency (ER) | payer MEDICARE, MEDICAID ==
[~2022-11-07] VITALS: Ht 162.6 cm; Wt 68.0 kg
[~2022-11-07 19:03] MED LIST changes: -LOSA100T32 PO; +LOSA100T33 PO
[2022-11-07 19:06] VITALS: BP 140/89
[2022-11-07 20:01] LABS: EOSINOPHILS % 2.8 % (0.0-5.0); HEMATOCRIT. 36.9 % (36.0-48.0); HEMOGLOBIN. 12.1 g/dL (12.0-16.0); LYMPHOCYTES % 30.2 % (20.0-50.0); MEAN CORPUSCULAR HEMOGLOBIN 29.1 pg (28.0-32.0); MEAN CORPUSCULAR VOLUME 88.7 fL (81.0-99.0); MEAN PLATELET VOLUME 7.9 fl (7.4-10.4); MONOCYTES % 8.3 % (2.0-8.0); NEUTROPHILS % 57.7 % (40.0-76.0); PLATELET 203 x1000/uL (130-400); RED BLOOD CELL COUNT 4.17 mill/uL (4.2-5.4); RED CELL DISTRIBUTION WIDTH 13.4 % (11.6-14.6)
[2022-11-07 20:13] LABS: CHLORIDE 106 mEq/L (98-107)
[2022-11-07 20:15] LABS: PROTHROMBIN TIME 10.4 sec (9.6-11.0)
[2022-11-07] MEDS ORDERED: POTASSIUM CHLORIDE 20MEQ/PACKET PO NR (22:15)
== END 2022-11-07 23:15 | disposition home or self-care (01) ==
LOC: ER 19:03
DX: F41.9 Anxiety disorder, unspecified (principal); E11.9 Type 2 diabetes mellitus without complications; Z86.73 Personal history of transient ischemic attack (TIA), and cerebral infarction without residual deficits; Z79.899 Other long term (current) drug therapy; I11.9 Hypertensive heart disease without heart failure
CPT/HCPCS: 36415; 71045; 80053; 83880; 84484; 85025; 93005; 99285